=== PATIENT | male | born 1930 | race Caucasian/White ===

== ENCOUNTER 2017-03-09 22:29 | Emergency (ER) | payer MEDICARE ==
[2017-03-09 22:29] VITALS: BMI 25.7
[2017-03-09 22:46] VITALS: O2SAT 97
[2017-03-09] MEDS ORDERED: Oxycodone/Acetaminophen 5/325 mg Tab PO STA (23:17)
--- NOTE | 2017-03-09 23:23 | C.PDOC ---
History Of Present Illness Patient brought in by ambulance after falling down the bus steps. He struck his lower back and forehead but denies associated loss of consciousness. He is c/o pain in his back and states that he cannot walk. He has pain in his forehead and is applying ice to a soft tissue swelling. Time Seen by Provider: 03/09/17 22:43 Chief Complaint (Nursing): Back Pain History Per: Patient History/Exam Limitations: no limitations Current Symptoms Are (Timing): Still Present Quality Of Discomfort: "Pain" Severity: Severe Previous Symptoms: None Exacerbating Factor(s): Movement Past Medical History Vital Signs: Last Vital Signs Temp 97.5 F L 03/09/17 22:42 Pulse 66 03/09/17 22:42 Resp 18 03/09/17 22:42 BP 139/72 03/09/17 22:42 Pulse Ox 97 03/10/17 00:10 - Medical History PMH: CVA Surgical History: No Surg Hx - [facility] Procedures OCCUPATIONAL THERAPY (02/05/14) PHYSICAL THERAPY NEC (02/05/14) RECREATIONAL THERAPY (02/05/14) Family History: States: No Known Family Hx - Social History Hx Tobacco Use: Yes Hx Alcohol Use: No Hx Substance Use: No - Immunization History Hx Tetanus Toxoid Vaccination: No Hx Influenza Vaccination: No Hx Pneumococcal Vaccination: No Review Of Systems Except As Marked, All Systems Reviewed And Found Negative. Musculoskeletal: Positive for: Back Pain Skin: Positive for: Bruising (forehead) Physical Exam - Physical Exam Appears: Well, No Acute Distress Skin: Normal Color, Warm, Dry, Ecchymosis (over left eyebrow) Head: Swelling (over forehead) Eye(s): bilateral: Normal Inspection, PERRL, EOMI Ear(s): Bilateral: Normal Neck: Normal, Normal ROM, No Midline Cervical Tenderness, Supple Chest: Symmetrical Cardiovascular: Rhythm Regular Respiratory: Normal Breath Sounds Gastrointestinal/Abdominal: Normal Exam, Soft, No Tenderness Back: Normal Inspection, Vertebral Tenderness (lumbar) Extremity: Normal ROM, No Tenderness Extremity: Bilateral: Atraumatic, Normal Color And Temperature, Normal ROM Neurological/Psych: Oriented x3, Normal Speech, Normal Cognition, Normal Cranial Nerves Extremity: Right: No Drift, Left: No Drift, Upper: No Drift, Lower: No Drift ED Course And Treatment O2 Sat by Pulse Oximetry: 97 Pulse Ox Interpretation: Normal - Other Rad Lumbar spine X-Ray: Interpreted by Me, Viewed By Me Interpretation: Degenerative changes without evidence of subluxation or fracture. - CT Scan/US Head Other Rad Studies (CT/US): Read By Radiologist, Radiology Report Reviewed CT/US Interpretation: No acute intracranial hemorrhage or suspicious mass effect. Progress Note: Patient treated with Percocet in ED. Disposition Counseled Patient/Family Regarding: Studies Performed, Diagnosis, Need For Followup - Disposition Referrals: Charles Duffy [Staff Provider] - Disposition: HOME/ ROUTINE Disposition Time: 00:21 Condition: STABLE Additional Instructions: Activity as tolerated. Take Tylenol 2 tablets every 4-6 hours as needed for pain. Instructions: Contusion in Adults (ED) - Clinical Impression Clinical Impression: Contusion of back, Contusion of forehead
--- NOTE | 2017-03-09 23:55 | CT ---
EXAM: CT Head Without Intravenous Contrast CLINICAL HISTORY: 86 years old, male; Injury or trauma; Fall; Initial encounter; Blunt trauma (contusions or hematomas); Consciousness not specified; Additional info: Head injury TECHNIQUE: Axial computed tomography images of the head/brain without intravenous contrast. This CT exam was performed using one or more of the following dose reduction techniques: automated exposure control, adjustment of the mA and/or kV according to patient size, and/or use of iterative reconstruction technique. Coronal and sagittal reformatted images were created and reviewed. COMPARISON: No relevant prior studies available. FINDINGS: Brain: No acute intracranial hemorrhage. Age-appropriate periventricular white matter disease. No edema. Extensive vascular calcifications are identified. Ventricles: Age-appropriate ventriculomegaly. Bones: No acute displaced fracture. Sinuses: Unremarkable as visualized. No acute sinusitis. Mastoid air cells: Unremarkable as visualized. No mastoid effusion. IMPRESSION: No acute intracranial hemorrhage, or suspicious mass effect.
[2017-03-10] MEDS ORDERED: Oxycodone/Acetaminophen 5/325 mg Tab ONE (00:19)
[2017-03-10 01:02] VITALS: BP 128/68; PULSE 68; RESP 16; TEMP 97.9
--- NOTE | 2017-03-10 11:28 | RAD ---
PROCEDURE: Radiographs of the Lumbar Spine. HISTORY: fall back injury COMPARISON: No prior. FINDINGS: BONES: There is moderate levoscoliosis in the lumbar spine. There is diffuse bone demineralization. . There is no acute compression fracture. Bone alignment is normal. DISC SPACES: There is multilevel degenerative disc disease with anterior osteophytes, reduced disc heights and multilevel facet arthropathy, worse at L5-S1. OTHER FINDINGS: There are advanced atherosclerotic calcifications in the abdominal aorta. IMPRESSION: No acute compression fracture. Multilevel degenerative disc disease, worse at L5-S1.
== END 2017-03-10 01:01 | disposition home or self-care (01) ==
LOC: C.ER 22:29
DX: S30.0XXA Contusion of lower back and pelvis, initial encounter (principal); S00.83XA Contusion of other part of head, initial encounter; V78.4XXA Person boarding or alighting from bus injured in noncollision transport accident, initial encounter; Y92.410 Unspecified street and highway as the place of occurrence of the external cause